=== PATIENT | female | born 1985 | race Two or more races ===

== ENCOUNTER 2019-02-08 00:18 | Outpatient (CLI) | payer OTHER | END 2019-02-08 13:33 | disposition home or self-care (01) | LOC: OBS/DEL 00:18 | DX: O26.892 Other specified pregnancy related conditions, second trimester (principal); Z34.02 Encounter for supervision of normal first pregnancy, second trimester; O35.8XX0 Maternal care for other (suspected) fetal abnormality and damage, not applicable or unspecified; N93.0 Postcoital and contact bleeding ==

== ENCOUNTER 2019-05-16 05:02 | Inpatient (IN) | payer OTHER ==
[~2019-05-16] VITALS: Ht 172.7 cm; Wt 3.2 kg
[2019-05-16] MEDS ORDERED: PRENATAL + DHA1 EAC1 PO (05:57)
[2019-05-18] MEDS ORDERED: OBSTETRIX DHA1 EACH PO (08:19)
== END 2019-05-18 14:25 | disposition home or self-care (01) | DRG 788 ==
LOC: LDR 05:02 → OB/GYN 18:54
PROVIDERS: ADMIT Obstetrics & Gynecology
PROC: 3E033VJ Introduction of Other Hormone into Peripheral Vein, Percutaneous Approach (ICD-10-PCS; 2019-05-16)
PROC: 4A1HXCZ Monitoring of Products of Conception, Cardiac Rate, External Approach (ICD-10-PCS; 2019-05-16)
PROC: 4A033R1 Measurement of Arterial Saturation, Peripheral, Percutaneous Approach (ICD-10-PCS; 2019-05-16)
PROC: 10D00Z1 Extraction of Products of Conception, Low, Open Approach (ICD-10-PCS; principal; 2019-05-16 16:00)
DX: O61.0 Failed medical induction of labor (principal); O69.2XX0 Labor and delivery complicated by other cord entanglement, with compression, not applicable or unspecified; Z3A.40 40 weeks gestation of pregnancy; Z37.0 Single live birth